=== PATIENT | female | born 1970 ===

== ENCOUNTER 2018-06-08 11:33 | Outpatient (REF) | payer BC, SELFPAY ==
--- NOTE | 2018-06-08 09:30 | PAPFT_PTH ---
PATIENT: Safia Aguiar LOC: [facility] U#:[id number] AGE/SX: 48/F ROOM: RE06/08/[address]: Danielle Flynn : 1970 BED: DIS: 06/08/2018 SPEC #: [id number] RECD: 06/09/18 12:56 STATUS: AXEL REQ #: [id number] QUINCY: 06/08/18 09:[address]: Danielle Flynn [facility] Cytology RECD BY: Maame Figueroa Tissues: 1 - CX/ENDOCX FOR PAP SMEARS Procedures: PAP THIN PREP/[facility] Screening HPV DNA PROBE Comments: [id number]
[2018-06-08 21:27] LABS: Cholesterol 178 mg/dL (50-200); Glucose 72 mg/dL (70-100); HDL Cholesterol 58 mg/dL (40-60); LDL CHOLESTEROL 109 mg/dL (<100); Triglyceride 84 mg/dL (30-150)
== END 2018-06-08 11:53 ==
LOC: NCHCN 11:33
PROVIDERS: PCP Family Medicine; Visit Provider Family Medicine
DX: Z00.00 Encounter for general adult medical examination without abnormal findings (principal); Z13.220 Encounter for screening for lipoid disorders; Z13.1 Encounter for screening for diabetes mellitus; Z12.4 Encounter for screening for malignant neoplasm of cervix; Z11.51 Encounter for screening for human papillomavirus (HPV)
CPT/HCPCS: 80061; 82947; 83721; 88142; 87624

== ENCOUNTER 2025-02-08 14:07 | Outpatient (REF) | payer BC, SELFPAY ==
--- NOTE | 2025-02-08 13:00 | PAPFT_PTH ---
[id number]SX: 55/F ROOM: RE02/08/[address]: Danielle Flynn : 1970 BED: DIS: 02/08/2025 SPEC #: [id number] RECD: 02/09/25 13:06 STATUS: AXEL REKevon #: [id number] QUINCY: 02/08/25 13:[address]: Danielle Flynn DEPT: [facility] Cytology RECD BY: Maame Figueroa Tissues: 1 - CX/ENDOCX FOR PAP SMEARS Procedures: PAP THIN PREP/[facility] Screening HPV DNA PROBE Comments: [id number] (HPV 16 & 18/45)
== END 2025-02-08 14:08 | disposition home or self-care (01) ==
LOC: NCHCN 14:07
PROVIDERS: PCP Family Medicine; Visit Provider Family Medicine
DX: Z12.4 Encounter for screening for malignant neoplasm of cervix (principal); Z00.00 Encounter for general adult medical examination without abnormal findings
CPT/HCPCS: 88142; 87624